=== PATIENT | female | born 1990 | race Asian ===

== ENCOUNTER → 2016-08-21 | Emergency (ER) | payer BC, OTHER ==
[2016-08-21 23:35] VITALS: BMI 21.4
--- NOTE | 2016-08-21 23:46 | PDOC ---
History of Present Illness - General Chief Complaint: Cold Symptoms Stated Complaint: COLD SYMPTOMS Time Seen by Provider: 08/21/16 23:34 History Source: Patient Exam Limitations: No Limitations - History of Present Illness Initial Comments: 08/21/16 23:49 26-year-old female without any medical history presents to the emergency department with her mother complaining of nonproductive cough, rhinorrhea, nasal congestion 2 weeks. Patient denies any headache, dizziness, lightheadedness, neck pains, chest pain, shortness of breath, abdominal pains, flank pains, urinary symptoms. 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 Patient is currently on amoxicillin from her PMD. Timing/Duration: reports: other (x2 weeks) Past History - Travel Traveled outside of the country in the last 30 days: No Close contact w/someone who was outside of country & ill: No - Past Medical History Allergies/Adverse Reactions: Allergies Allergy/AdvReac Type Severity Reaction Status Date / Time No Known Allergies Allergy Verified 08/21/16 23:23 Home Medications: Ambulatory Orders Amoxicillin - [Amoxicillin 500mg Capsule -] 500 mg PO Q8H 08/22/16 Other medical history: Pt denies - Psycho/Social/Smoking Cessation Hx Suicidal Ideation: No Smoking Status: No Smoking History: Never smoked Number of Cigarettes Smoked Daily: 0 Hx Alcohol Use: No Drug/Substance Use Hx: No Substance Use Type: None Review of Systems - Review of Systems Able to Perform ROS?: Yes Comments:: 08/21/16 23:49 CONSTITUTIONAL: Absent: fever, chills, diaphoresis, generalized weakness, malaise, loss of appetite HEENT: +rhinorrhea, nasal congestion Absent: throat pain, throat swelling, difficulty swallowing, mouth swelling, ear pain, eye pain, visual Changes CARDIOVASCULAR: Absent: chest pain, loss of consciousness, palpitations, irregular heart rate, peripheral edema RESPIRATORY: +cough Absent: , shortness of breath, dyspnea with exertion, orthopnea, wheezing, stridor, hemoptysis GASTROINTESTINAL: Absent: abdominal pain, abdominal distension, nausea, vomiting, diarrhea, constipation, melena, hematochezia GENITOURINARY: Absent: dysuria, frequency, urgency, hesitancy, hematuria, flank pain, genital pain MUSCULOSKELETAL: Absent: myalgia, arthralgia, joint swelling SKIN: Absent: rash, itching, pallor HEMATOLOGIC/IMMUNOLOGIC: Absent: easy bleeding, easy bruising, lymphadenopathy, frequent infections ENDOCRINE: Absent: unexplained weight gain, unexplained weight loss, heat intolerance, cold intolerance NEUROLOGIC: Absent: headache, focal weakness or paresthesias, dizziness, unsteady gait, seizure, mental status changes, bladder or bowel incontinence PSYCHIATRIC: Absent: anxiety, depression, suicidal or homicidal ideation, hallucinations. Is the patient limited Chinese proficient: No *Physical Exam - Vital Signs Last Vital Signs Temp Pulse Resp BP Pulse Ox 97.4 F L 77 18 108/68 98 08/21/16 23:23 08/21/16 23:23 08/21/16 23:23 08/21/16 23:23 08/21/16 23:23 - Physical Exam Comments: 08/21/16 23:49 GENERAL: Well developed, well nourished. Awake and alert. No acute distress. HEENT: Normocephalic, atraumatic. PERRLA, EOMI. No conjunctival pallor. Sclera are non- icteric. Moist mucous membranes. Oropharynx is clear. NECK: Supple. Full ROM. No JVD. Carotid pulses 2+ and symmetric, without bruits. No thyromegaly. No lymphadenopathy. CARDIOVASCULAR: Regular rate and rhythm. No murmurs, rubs, or gallops. Distal pulses are 2+ and symmetric. PULMONARY: No evidence of respiratory distress. Lungs clear to auscultation bilaterally. No wheezing, rales or rhonchi. ABDOMINAL: Soft. Non-tender. Non-distended. No rebound or guarding. No organomegaly. Normoactive bowel sounds. MUSCULOSKELETAL Normal range of motion at all joints. No bony deformities or tenderness. No CVA tenderness. EXTREMITIES: No cyanosis. No clubbing. No edema. No calf tenderness. SKIN: Warm and dry. Normal capillary refill. No rashes. No jaundice. NEUROLOGICAL: Alert, awake, appropriate. Cranial nerves 2-12 intact. No deficits to light touch and temperature in face, upper extremities and lower extremities. No motor deficits in the in face, upper extremities and lower extremities. Normoreflexic in the upper and lower extremities. Normal speech. Toes are down- going bilaterally. Gait is normal without ataxia. PSYCHIATRIC: Cooperative. Good eye contact. Appropriate mood and affect. ED Treatment Course - RADIOLOGY Chest X-Ray Result: No Infiltrates *DC/Admit/Observation/Transfer Diagnosis at time of Disposition: Bronchitis - Discharge Dispostion Disposition: HOME Condition at time of disposition: Stable Admit: No - Referrals Referrals: Kat Sparks MD [Primary Care Provider] - - Patient Instructions Printed Discharge Instructions: DI for Acute Bronchitis Additional Instructions: Rest Increase fluids Tylenol alternating with motrin as needed for fever Complete your antibiotics that your primary care physician has given you: Amoxicillin. Return to the ER for severe/persistent/ worsening symptoms - Post Discharge Activity Work/School Note: Back to Work
--- NOTE | 2016-08-22 00:17 | PDOC ---
*Physical Exam - Vital Signs Last Vital Signs Temp Pulse Resp BP Pulse Ox 97.4 F L 77 18 108/68 98 08/21/16 23:23 08/21/16 23:23 08/21/16 23:23 08/21/16 23:23 08/21/16 23:23 ED Treatment Course - ADDITIONAL ORDERS Additional order review: Laboratory Results 08/21/16 23:47 Urine HCG, Qual Negative Medical Decision Making - Medical Decision Making 08/22/16 00:17 agree with care from CINDY Cabral *DC/Admit/Observation/Transfer Diagnosis at time of Disposition: Bronchitis - Discharge Dispostion Disposition: HOME Condition at time of disposition: Stable - Referrals Referrals: Kat Sparks MD [Primary Care Provider] - - Patient Instructions Printed Discharge Instructions: DI for Acute Bronchitis Additional Instructions: Rest Increase fluids Tylenol alternating with motrin as needed for fever Complete your antibiotics that your primary care physician has given you: Amoxicillin. Return to the ER for severe/persistent/ worsening symptoms - Post Discharge Activity
[2016-08-22 01:03] VITALS: BP 105/72; PULSE 64; TEMP 97.6
== END | disposition home or self-care (01) ==
LOC: JER 23:17
DX: J40 Bronchitis, not specified as acute or chronic (principal)
CPT/HCPCS: 71020-TC; 84703; 99281-25

== ENCOUNTER 2020-12-25 15:19 | Emergency (ER) | payer OTHER ==
[2020-12-25 15:50] VITALS: BP 124/75; PULSE 89; TEMP 97.4; BMI 23.6
== END 2020-12-25 18:19 | disposition home or self-care (01) ==
LOC: JER 15:19
DX: S00.03XA Contusion of scalp, initial encounter (principal); Y04.8XXA Assault by other bodily force, initial encounter
CPT/HCPCS: 99283-25